=== PATIENT | male | born 1990 | race Two or more races ===

== ENCOUNTER 2018-12-11 17:39 | Emergency (ER) | payer SELFPAY ==
[~2018-12-11] VITALS: Ht 170.2 cm; Wt 77.1 kg
[2018-12-11] MEDS ORDERED: SODIUM CHLORIDE 0.9% 1,000 ML IV ONE ×3 (18:03→22:00)
[2018-12-11] MEDS ORDERED: THIAMINE 100mg/ml INJ (200mg/2ml VIAL) IV ONE (18:15)
[2018-12-11 18:26] LABS: Basophils # (auto) 0.1 uL; Basophils % (auto) 0.9 % (0.0-2.0); Eosinophils # (auto) 0.1 uL; Eosinophils % (auto) 0.7 % (0.0-7.0); Hematocrit 44.9 % (41.0-53.0); Hemoglobin 15.3 g/dL (13.5-17.5); Lymphocytes # (auto) 1.9 uL; Lymphocytes % (auto) 20.8 % (10.0-50.0); Mean Corpuscular Hemoglobin 29.3 pg (28.0-32.0); Mean Corpuscular Hgb Conc. 34.2 g/dL (32.0-36.0); Mean Corpuscular Volume 85.7 fL (80.0-100.0); Monocytes # (auto) 0.4 uL; Monocytes % (auto) 4.5 % (0.0-12.0); Neutrophils # (auto) 6.6 uL; Neutrophils % (auto) 73.1 % (37.0-80.0); Platelet Count (auto) 229 10^3/uL (140-450); Red Blood Cells 5.24 10^6/uL (4.5-5.90); Red Cell Distribution Width 13.4 % (11.8-14.3); White Blood Cell 9.1 10^3/uL (4.4-10.8)
[2018-12-11 18:38] VITALS: BP 122/79
[2018-12-11 18:44] LABS: Calcium 8.2 mg/dL (8.5-10.1); Potassium 3.6 mmol/L (3.5-5.1)
[2018-12-11 18:57] LABS: Bilirubin, Total 0.5 mg/dL (0.2-1.0); Total Protein 8.1 g/dL (6.4-8.2)
[2018-12-11 19:16] LABS: Albumin 4.3 g/dL (3.4-5.0); Blood Alcohol 322.8 mg/dL (0-5)
[2018-12-11 19:36] LABS: BUN/Creatinine Ratio 12.7
== END 2018-12-12 00:06 | disposition home or self-care (01) ==
LOC: EDBD 17:39 → ER 17:39
DX: E86.0 Dehydration (principal); F10.129 Alcohol abuse with intoxication, unspecified; F17.210 Nicotine dependence, cigarettes, uncomplicated; Y90.0 Blood alcohol level of less than 20 mg/100 ml
CPT/HCPCS: 36415; 70450; 80053; 80320; 85025; 96361; 96374; 99284; J3411

== ENCOUNTER 2020-12-07 13:20 | Emergency (ER) | payer MEDICAID ==
[~2020-12-07] VITALS: Ht 180.3 cm; Wt 88.5 kg
[2020-12-07 15:42] VITALS: BP 122/88
== END 2020-12-07 17:03 | disposition home or self-care (01) ==
LOC: ER 13:20
DX: S82.301A Unspecified fracture of lower end of right tibia, initial encounter for closed fracture (principal); W17.2XXA Fall into hole, initial encounter; Y93.89 Activity, other specified; Y92.89 Other specified places as the place of occurrence of the external cause; Y99.8 Other external cause status
CPT/HCPCS: 29515; 73590; 73610; 73700

== ENCOUNTER → 2022-08-25 | Emergency (ER) | payer MEDICAID ==
[~2022-08-25] VITALS: Ht 180.3 cm; Wt 91.0 kg
[~2022-08-25] MED LIST: ACET-6 PO; ACETAMINOPHEN 500 MG TAB PO ONE; LEVO500T91 PO; METR375C PO; levoFLOXacin 500 MG TAB PO ONE
[2022-08-25 14:18] LABS: Urine Bacteria NONE SEEN /hpf (None Seen); Urine Blood Negative /uL (Negative); Urine Mucus FEW (None Seen); Urine WBC <1 /hpf (0 - 3)
[2022-08-25 14:20] LABS: Basophils # (auto) 0.1 10 ^3/uL (0-0.2); Basophils % (auto) 0.9 % (0.0-2.0); Eosinophils # (auto) 0.1 10 ^3/uL (0-0.8); Eosinophils % (auto) 1.4 % (0.0-7.0); Hematocrit 40.3 % (41.0-53.0); Hemoglobin 13.5 g/dL (13.5-17.5); Lymphocytes # (auto) 1.7 10 ^3/uL (0.4-5.4); Lymphocytes % (auto) 23.2 % (10.0-50.0); Mean Corpuscular Hemoglobin 29.2 pg (28.0-32.0); Mean Corpuscular Hgb Conc. 33.4 g/dL (32.0-36.0); Mean Corpuscular Volume 87.6 fL (80.0-100.0); Monocytes # (auto) 0.7 10 ^3/uL (0-1.3); Monocytes % (auto) 9.9 % (0.0-12.0); Neutrophils # (auto) 4.7 10 ^3/uL (1.6-8.6); Neutrophils % (auto) 64.6 % (37.0-80.0); Nucleated Red Blood Cells % 0.2 %; Red Cell Distribution Width 13.7 % (11.8-14.3); White Blood Cell 7.3 10^3/uL (4.4-10.8)
[2022-08-25 14:43] LABS: Calcium 8.6 mg/dL (8.5-10.1); Potassium 3.9 mmol/L (3.5-5.1)
[2022-08-25 14:45] LABS: BUN/Creatinine Ratio 19.5 (10.0-20.0)
[2022-08-25 14:47] LABS: Bilirubin, Total 0.9 mg/dL (0.2-1.0); Total Protein 7.6 g/dL (6.4-8.2)
[2022-08-25 15:36] LABS: Phencyclidine Screen, Urine NEGATIVE (NEGATIVE)
[2022-08-25 16:00] LABS: Amphetamine Screen, Urine NEGATIVE (NEGATIVE); Barbiturate Scree,Urine NEGATIVE (NEGATIVE); Benzodiazephine Screen, Urine NEGATIVE (NEGATIVE); Cannabinoid Screen, Urine NEGATIVE (NEGATIVE); Cocaine Screen, Urine NEGATIVE (NEGATIVE); Opiate Scree,Urine NEGATIVE (NEGATIVE)
[2022-08-25 16:05] LABS: Alcohol, Urine < 3.0 mg/dL (0-10)
[2022-08-25 20:01] VITALS: BP 152/78
== END ==
LOC: ER 12:30
DX: K57.32 Diverticulitis of large intestine without perforation or abscess without bleeding (principal); Z79.1 Long term (current) use of non-steroidal anti-inflammatories (NSAID); Z79.899 Other long term (current) drug therapy
CPT/HCPCS: 36415; 74176; 80053; 80307; 81001; 83605; 83690; 85025; 87040